=== PATIENT | male | born 1940 | race African-American/Black ===

== ENCOUNTER 2018-07-28 15:55 | Emergency (ER) | payer MEDICARE, SELFPAY ==
[2018-07-28 15:56] VITALS: BP 174/96; PULSE 75; RESP 16; TEMP 36.9; O2SAT 97; BMI 27.6
--- NOTE | 2018-07-28 16:22 | RAD_ITS ---
STUDY: X-RAY - ABDOMEN/PELVIS REASON FOR EXAM: Male, 78 years old. Constipation. TECHNIQUE: Two AP supine views of the abdomen and pelvis. COMPARISON: None. FINDINGS: There is no bowel obstruction. There is air and stool to the level of the rectum. There is mild constipation noted. The visualized osseous structures are within normal limits. RAD/Abdomen Single View IMPRESSION: No bowel obstruction. Mild constipation. Electronically Signed: Bharath Lucero, at 17:20 EDT Tel , Service support ,
[2018-07-28] MEDS: Acetaminophen 500 MG Tablet 1000 MG PO (16:45)
[2018-07-28] MEDS: Acyclovir 800 MG Tablet PO (16:45)
--- NOTE | 2018-07-28 17:45 | ED.DCSUM_ITS ---
- ER Visit Summary Date of Service: 07/28/18 Chief Complaint: Abdominal and back pain History of Present Illness: The patient is a [address] Elkins. He reports that he has left-sided back and abdominal pain that began approximately 2 days ago. Is a dull pain that is constant. Is sharp with movement, pressure, or laying on it. States that 7 to 10 hours and 2-10 currently. States that he has a rash that appeared in the area today. Patient denies any associated nausea, vomiting, diarrhea. Reports that he has had a small bowel movement yesterday and today. His last normal bowel was approximately 4 days ago. Typically he goes daily. Reports that over the past month has had 2 episodes of diarrhea that seems to be a change in the caliber of his stool. He is never had a colonoscopy. Review of systems is otherwise negative. Physical Examination: Vitals: Stable. Afebrile. General: Well-nourished and well-developed. Head: Normocephalic atraumatic. Neck: Supple, no lymphadenopathy. No JVD. Nontender. Cardiovascular: Regular rate and rhythm. No murmurs. Respiratory: No respiratory distress. Clear to auscultation bilaterally. Abdominal: Soft, nontender, nondistended, normal bowel sounds. No guarding, rebound, or peritoneal signs. Back: Nontender. Extremities: Nontender, no edema. Skin: Vesicular rash on the left and a T8 distribution consistent with shingles. Neurologic: Alert and oriented ?3. Cranial nerves II through XII are intact. Normal strength and sensation. Psych: Normal affect. Test Results: Abdominal x-ray shows mild constipation. Emergency Department Course and Treatment: Patient was treated with Tylenol and acyclovir. He is resting comfortably. Treatment Plan: Patient will be discharged with acyclovir and magnesium citrate. Instructed to follow-up with Dr. Elkins in 1 week for another exam. I did discuss the risk of postherpetic neuralgia. I also discussed in the change in his bowel habits that he needs to have a colonoscopy. He was given name of Dr. Ho who is on-call for [facility] general surgery. Return to the emergency department for any worsening symptoms. Disposition: To home in improved and stable condition. Impression: 1. Constipation. 2. Shingles, left T8 distribution. This note was generated with Dragon dictation software. It may contain incorrect words, spelling, and punctuation that were not noted in review of the chart prior to signing ED Disposition - Plan for ED Patient: Instructions: ED Constipation, ED Shingles Prescriptions: Acyclovir 1 tab PO 5X/DAY #35 tablet Magnesium Citrate [Citrate Of Magnesia] 300 ml PO X1 #1 bottle Referrals: Angela Elkins MD [Primary Care Provider] - 1 Week Viridiana Ho MD [STAFF PHYSICIAN] -
[2018-07-28 17:58] VITALS: BP 154/93; PULSE 81; RESP 16; O2SAT 99
== END 2018-07-28 18:00 | disposition home or self-care (01) ==
PROVIDERS: Emergency Provider Emergency Medicine; Family Provider Internal Medicine; PCP Internal Medicine
DX: K59.00 Constipation, unspecified (principal); B02.9 Zoster without complications
CPT/HCPCS: 74018; 99284

== ENCOUNTER 2019-11-16 04:42 | Emergency (ER) | payer MEDICARE, SELFPAY ==
[2019-11-16 04:42] VITALS: BP 188/107; PULSE 77; RESP 18; TEMP 36.3; O2SAT 98; BMI 30.2
--- NOTE | 2019-11-16 05:45 | CT_ITS ---
HISTORY: NECK PAIN X1 WEEK-WORSE W/ MOVEMENT PARASTHESIS RT ARM/LEG, LT MASTOID PAIN, ELEV BP ADDITIONAL HISTORY: None provided COMPARISON: None TECHNIQUE: Noncontrast CT images of the cervical spine. 2D images were reviewed to aid in assessment of the cervical spine. A radiation dose optimization technique was used for this scan. Number of images including paperwork: [id number] FINDINGS: BONES: No acute fracture. No suspicious bone lesion. VERTEBRAL ALIGNMENT: No traumatic subluxation. Preservation of the normal cervical lordosis. DISCS AND JOINTS: Severe discogenic degenerative changes at C4-5, C5-6 and C6-7. Facet arthropathy. SPINAL CANAL AND FORAMINA: No critical canal stenosis. Mild bilateral foraminal stenosis at C4-5, C5-6 and C6-7. SOFT TISSUES: No prevertebral soft tissue swelling. No pathologic-appearing cervical adenopathy. LUNG APICES: Unremarkable. PARANASAL SINUSES: Unremarkable imaged portions if any. CT/Spine Cervical without Contras IMPRESSION: No acute osseous abnormality. Cervical spondylosis. Individualized dose optimization techniques were used for this CT. at 0725 Reported and signed by: Rose Ramos MD Electronically Signed: Rose Ramos MD at 7:25 EDT Tel , Service support ,
--- NOTE | 2019-11-16 05:46 | CT_ITS ---
HISTORY: NECK PAIN X1 WEEK-WORSE W/ MOVEMENT PARASTHESIS RT ARM/LEG, LT MASTOID PAIN, ELEV BP EXAMINATION: CT IACs W/O Contrast Injection TECHNIQUE:Routine noncontrast CT protocol was performed of the internal auditory canals and temporal bones. 2-D reformats were performed by the technologist. A radiation dose optimization technique was used for this scan. IV Contrast dosage and agent: None COMPARISON: CT orbits 01/26/2016 FINDINGS: The right and left mastoids are normally developed, symmetrical, and clear. The external, middle, and inner ear structures show no CT abnormality bilaterally. No mastoid opacification, bony erosion, or inflammatory change. No cholesteatoma or suspicious lesion. No significant TMJ arthritis identified. Bilateral intraparotid lymph nodes, stable compared to prior. Bilateral maxillary sinus circumferential mucosal thickening without significant change. Bilateral sphenoid sinus mucosal thickening, worse on the right, and new compared to prior. Bilateral superficial dermal calcifications, unchanged. No abscess or suspicious fluid collection seen. CT/Orb Sella Post Fossa Ear w/o IMPRESSION: 1. Normal CT bilateral mastoids and temporal bones. 2. Bilateral mild sphenoid sinusitis, a new finding, and bilateral maxillary sinusitis, unchanged. Individualized dose optimization techniques were used for this CT. at 0817 Reported and signed by: Fred Sherwood MD Electronically Signed: Fred Sherwood, at 8:16 EDT Tel , Service support ,
--- NOTE | 2019-11-16 05:51 | ED.DCSUM_ITS ---
- ER Visit Summary Date of Service: 11/16/19 Chief Complaint: Neck pain History of Present Illness: The patient is a 79 M who presents with neck pain that began approximately 1 week ago but is gotten worse over the past 3 days. Patient denies any trauma or injury. Patient states the pain is worse with tur brenda his head as well as flexing his head. Patient describes the pain is constant aching but is sharp with movement. Patient denies any paresthesias or weakness. Patient denies any radiation of the pain. Patient states the pain has been constant for the past week. Patient denies any bowel or bladder changes. Patient denies any saddle anesthesia. Physical Examination: Vital signs are stable. Patient is afebrile. Patient is in no acute distress. Musculoskeletal exam reveals tenderness over the cervical spine and paraspinal muscles. There is also some mild tenderness over the left mastoid process. There is no edema or erythema. There is no warmth noted. Range of motion of the cervical spine was limited in all motions secondary to pain. Heart was regular rate and rhythm. Lungs are clear and equal bilaterally. Abdomen is soft. Bowel sounds are normal. Cranial nerves II through XII are intact. There are no focal motor or sensory deficits noted. Test Results: CBC and basic metabolic profile were obtained and were essentially within normal limits. CT scan of the cervical spine was obtained. CT scan of the orbit, sella, and posterior fossa ear without contrast was obtained. Emergency Department Course and Treatment: Patient was given injection of morphine here. Patient was also given a dose of oral Valium. Disposition: Care of the patient was turned over to the oncoming physician pending CT results. Impression: 1. Acute cervical strain This note was generated with Apieron dictation software. It may contain incorrect words, spelling, and punctuation that were not noted in review of the chart prior to signing ED Disposition - Plan for ED Patient: Disposition: Home or Assisted Living Diagnosis: Cervical paraspinal muscle spasm Instructions: ED SPASM Muscle Prescriptions: cycloBENZAPRine HCl [Flexeril] 10 mg PO QHS PRN PRN #20 tab PRN Reason: Muscle Spasm Prescription Printed Hydrocodone Bitart/Apap 5-325 [[place] 5MG-325MG] 1 tab PO Q6H PRN PRN 3 Days #10 tab PRN Reason: Pain Prescription Printed Referrals: Angela Elkins MD [Primary Care Provider] - 5-7 Days
[2019-11-16] MEDS: Morphine 4 MG/ML Syringe IV (06:10)
[2019-11-16 06:19] LABS: Absolute Lymphocyte Count 2.12 X10^3/uL (0.83-4.51); Absolute Neutrophil Count 5.8 X10^3/uL (2.0-7.7); Basophil# 0.07 X10^3/uL; Basophil% 0.8 % (0-1); Eosinophil# 0.25 X10^3/uL; Eosinophils% 2.7 % (0-5); Hematocrit 40.3 % (40-54); Hemoglobin 13.3 g/dL (13.0-16.5); Lymphocyte # 2.12 X10^3/ul (4.0); Lymphocyte % 22.8 % (19-41); Mean Corpuscular Hgb 28.9 pg (27.0-32.0); Mean Corpuscular Volume 87.6 fL (80-94); Mean Platelet Vol. 9.6 fl (6.2-12.0); Monocyte# 0.99 X10^3/uL; Monocyte% 10.7 % (0-10); NRBC Flagged by Analyzer 0 % (0-5); Neutrophil # 5.82 X10^3/uL (2.7-7.7); Neutrophil % 62.7 % (47-70); Platelet Count 255 K/mm3 (150-450); RBC Distribution Width CV 13.2 % (11.6-14.6); RBC Distribution Width SD 42.1 fl (35.1-43.9); White Blood Count 9.3 K/mm3 (4.4-11.0)
[2019-11-16 06:33] LABS: Anion Gap 5 (5-15); BUN 20 mg/dL (7-18); BUN/Creat Ratio 16.9 RATIO (10-20); Chloride 104 mmol/L (98-107); Creatinine, Serum 1.18 mg/dL (0.70-1.30); EST Glomerular Filtration Rate 63 mL/min (>60); Est Glom Filt Rate - Afr Amer 76 mL/min (>60); Estimated Creatinine Clearance 53.89 ml/min; Glucose 123 mg/dL (74-106); Potassium 3.9 mmol/L (3.5-5.1); Sodium Level 138 mmol/L (136-145)
[2019-11-16 07:09] VITALS: BP 187/98; PULSE 68; RESP 15; O2SAT 99
[2019-11-16] MEDS: diazePAM 5 MG Tablet PO (07:10)
== END 2019-11-16 08:51 | disposition home or self-care (01) ==
PROVIDERS: Emergency Provider Emergency Medicine; PCP Internal Medicine
DX: S16.1XXA Strain of muscle, fascia and tendon at neck level, initial encounter (principal); X58.XXXA Exposure to other specified factors, initial encounter
CPT/HCPCS: 70480; 72125; 80048; 85025; 96374; 99285; A4216

== ENCOUNTER 2021-04-29 21:15 | Emergency (ER) | payer MEDICARE, SELFPAY ==
[2021-04-29 21:16] VITALS: BP 175/87; PULSE 73; RESP 16; TEMP 36.4; O2SAT 98; BMI 26.4
--- NOTE | 2021-04-29 21:44 | RAD_ITS ---
STUDY: X-RAY - LEFT HAND REASON FOR EXAM: Male, 80 years old. LACERATION BETWEEN LEFT THUMB AND FIRST FINGER FROM BROKEN DISH. LIMITED POSITIONING DUE TO BANDAGE BECAUSE OF EXCESSIVE BLEEDING. TECHNIQUE: 3 view(s) of the hand. COMPARISON: None. FINDINGS: Normal radiocarpal articulation. Normal distal radioulnar joint. Normal visualized carpal bones. Normal carpal articulations Normal carpometacarpal articulation of the thumb. Normal second through fifth carpometacarpal joints. Normal metacarpi. Normal metacarpophalangeal joint of the thumb. Normal interphalangeal joint of the thumb. Normal proximal and distal phalanges of the thumb. Degenerative changes of the second and third MCP joints with lateral subluxation and periarticular erosions. Normal proximal and distal interphalangeal joints of the second through fifth fingers. Normal phalanges of the second through fifth fingers. Soft tissue swelling between the first and second digits with subcutaneous air. No radiopaque foreign body. RAD/Hand Min 3 Views IMPRESSION: 1. Soft tissue injury/laceration between the first and second digits. No radiopaque foreign body demonstrated. 2. Degenerative changes of the second and third MCP joints with erosive features suggesting possibility of rheumatoid arthritis. Electronically Signed: Kobe Escoto MD (Brooks) at 22:22 EST Reading Location ID and State: [facility] / [place] , Service support ,
[2021-04-29] MEDS: oxyCODONE 5 MG Tablet PO (23:14)
--- NOTE | 2021-04-29 23:17 | EX.ED.GENINJ ---
HPI History of Present Illness Chief Complaint: Laceration Narrative Narrative: Patient presents with a left hand laceration after falling into a broken glass dish. He has a thenar eminence and hyperthenar eminence laceration, he also has decreased sensation over the radial side of his thumb. No other injury. No neck pain. He is not anticoagulated. [facility] Medical History Hypertension Home Medications amlodipine 5 mg PO DAILY 11/23/15 [History Last Taken Unknown] cholecalciferol (vitamin D3) [Vitamin D3] 1,000 unit PO DAILY 10/18/16 [History Last Taken Unknown] magnesium citrate 300 ml PO X1 #1 bottle 07/28/18 [Rx Last Taken Unknown] mv,Ca,ifd-vebw-QW-lycopene [Centrum Men's Tablet] 1 ea PO DAILY 07/28/18 [History Last Taken Unknown] amoxicillin-pot clavulanate 875 mg PO Q12H #14 tab 11/16/19 [Rx Last Taken Unknown] cyclobenzaprine 10 mg PO QHS PRN PRN #20 tab 11/16/19 [Rx Last Taken Unknown] oxycodone-acetaminophen [Percocet] 1 tab PO Q8H PRN 3 Days #10 tab 04/29/21 [Rx Last Taken Unknown] Allergy/AdvReac Type Severity Reaction Status Date / Time No Known Allergies Allergy Verified 04/29/21 21:18 Social History Smoking Status: Never smoker ROS ROS ED ROS Narrative Past medical history: none Medications: Reviewed Social history: Noncontributory Review of systems: Musculoskeletal: Laceration and hand injury as in HPI Skin: Laceration Neurological: No weakness or paresthesias Hematologic: No easy bleeding or easy bruising EXAM Physical Exam Narrative Exam Narrative: Physical exam General: Patient does not appear in significant distress . Head: Normocephalic, Atraumatic Neck: No C-spine tenderness Cardiovascular: Normal distal pulses Back: Nontender, Normal Inspection. Extremities: Left hand shows a 2.5 cm laceration over the thenar eminence, there is an arteriolar bleed present, there is also a 1 cm flap laceration over the hypothenar eminence, there are other abrasions throughout the hand. Patient has normal strength of the thumb with normal tendon function however there is decreased sensation over the radial side of the thumb including loss of two-point discrimination in that region. Skin: As above Neurological: Normal strength and sensory deficit as above Const Vital Signs: 04/29/21 21:16 Temperature 97.6 F L Temperature Source Temporal Pulse Rate 73 Respiratory Rate 16 Blood Pressure 175/87 H Blood Pressure Mean 116 Pulse Ox 98 Oxygen Delivery Method Room Air PROC Procedures Lacerations Hand laceration: Length: 1.38 in Depth: Skin Shape: Flap Prep: Sterile Conditions and Shure-Clens Laceration repair: Debrideded, Irrigated and Lidocaine Number of Sutures/Jhon: 7 Suture Information: Ethilon and 4-0 Comment: I used a blood pressure cuff as a tourniquet, the arterial bleed stopped after approximation of the skin via tamponade. Patient was reexamined he does have pain in his thenar eminence but still has full range of motion. MDM MDM MDM Narrative Medical decision making narrative: Patient was sutured, there is no evidence of foreign body on my exploration. Hemostasis is achieved. Radiography Diagnostic Testing: Clinical Impression(s) from Imaging Studies Hand X-Ray 04/29/21 21:44 IMPRESSION: 1. Soft tissue injury/laceration between the first and second digits. No radiopaque foreign body demonstrated. 2. Degenerative changes of the second and third MCP joints with erosive features suggesting possibility of rheumatoid arthritis. Electronically Signed: Kobe Escoto MD (Brooks) at 22:22 EST Reading Location ID and State: [facility] / [place] , Service support , X-ray interpreted by me and radiologist does not show any foreign body. No fractures. Discharge Plan Triage Chief Complaint: Laceration ED Provider: Fritz Muñoz Dx/Rx/DC Orders Clinical Impression: Hand laceration Instructions: ED Laceration: All Closures, ED Laceration, Hand: All Closures Prescriptions: New oxycodone-acetaminophen [Percocet] 5-325 mg tablet 1 tab PO Q8H PRN (Reason: pain) 3 Days Qty: 10 RF: 0 No Action amlodipine 5 MG tablet 5 mg PO DAILY RF: 0 cholecalciferol (vitamin D3) [Vitamin D3] 1,000 UNIT capsule 1,000 unit PO DAILY RF: 0 mv,Ca,hhz-vsnf-WT-lycopene [Centrum Men] 1 EACH tablet 1 ea PO DAILY RF: 0 magnesium citrate 300 ML solution 300 ml PO X1 Qty: 1 RF: 0 cyclobenzaprine 10 MG tablet 10 mg PO QHS PRN PRN (Reason: Muscle Spasm) Qty: 20 RF: 0 amoxicillin-pot clavulanate 875 MG tablet 875 mg PO Q12H Qty: 14 RF: 0 Primary Care Provider: Angela Elkins Referrals: Pastor Seaman MD [STAFF PHYSICIAN] - 2 Days for wound check (sutures to be removed in 10 days) Angela Elkins MD [Primary Care Provider] - Disposition Disposition: Home, Self Care
[2021-04-29] MEDS: Cefazolin 1 GM/5 ML Vial IM (23:33)
== END 2021-04-30 00:13 | disposition home or self-care (01) ==
PROVIDERS: Emergency Provider Emergency Medicine; PCP Internal Medicine; Visit Provider Emergency Medicine
DX: S61.412A Laceration without foreign body of left hand, initial encounter (principal); W19.XXXA Unspecified fall, initial encounter; W25.XXXA Contact with sharp glass, initial encounter
CPT/HCPCS: 12001; 73130; 96372; 99283

== ENCOUNTER 2022-01-21 23:47 | Emergency (ER) | payer MEDICARE, SELFPAY ==
[2022-01-21 23:48] VITALS: BP 167/103; PULSE 70; RESP 15; TEMP 37; O2SAT 97; BMI 26.1
[2022-01-22] MEDS: Tetracaine 0.5% Ophthalmic Bottle 1 DRP RIGHT EYE (00:05)
[2022-01-22] MEDS: Fluorescein 1 MG STRIP 1 STRIP RIGHT EYE (00:06)
--- NOTE | 2022-01-22 00:11 | EDS_ITS ---
HPI History of Present Illness Chief Complaint: Eye Problem Informant: patient Narrative Narrative: Patient states he has a right eye irritation mostly on the lateral aspect. He states he was holding a piece of metal this morning about 8 AM that someone else was cutting. But he had glasses on and was turned away from the area. He never felt any problems at all. Later in the morning he was holding parts why somebody did TIG welding on them. He states it was a very bright arc. He started to have discomfort in the right eye this evening. He states his vision is normal to him. But the eye feels like it is burned or something is in it. [facility] Medical History Hypertension Home Medications amlodipine 5 mg tablet 5 mg PO DAILY 11/23/15 [History Last Taken Unknown] cholecalciferol (vitamin D3) 25 mcg (1,000 unit) capsule (Vitamin D3) 1,000 unit PO DAILY 10/18/16 [History Last Taken Unknown] magnesium citrate 300 ml PO X1 ##1 07/28/18 [Rx Last Taken Unknown] multivit,Ca,min-iron 8 mg-folic acid 200 mcg-lycopene 600 mcg tablet (Centrum Men) 1 ea PO DAILY 07/28/18 [History Last Taken Unknown] amoxicillin 875 mg-potassium clavulanate 125 mg tablet 875 mg PO Q12H #14 tabs 11/16/19 [Rx Last Taken Unknown] cyclobenzaprine 10 mg tablet 10 mg PO QHS PRN PRN Muscle Spasm #20 tabs 11/16/19 [Rx Last Taken Unknown] oxycodone-acetaminophen 5 mg-325 mg tablet (Percocet) 1 tab PO Q8H PRN pain 3 days #10 tabs 04/29/21 [Rx Last Taken Unknown] Allergy/AdvReac Type Severity Reaction Status Date / Time No Known Allergies Allergy Verified 04/29/21 21:18 Social History Smoking Status: Never smoker ROS ROS ED Constitutional Constitutional ED: Denies fever(s) Eyes Eyes: Reports other Details: See history of present illness. ; Denies blurry vision, change in vision or diplopia ENT ENT ED: Denies rhinorrhea or sore throat Cardiovascular Cardiovascular: Denies chest pain Respiratory/Chest Respiratory/Chest: Denies cough Gastrointestinal Gastrointestinal: Denies nausea or vomiting Musculoskeletal Musculoskeletal: Denies neck pain Integumentary Denies Abrasions or rash Neurologic Neurologic: Denies headache(s) Hematologic/Lymphatic Hematologic/Lymphatic: Denies easy bleeding or easy bruising Allergic/Immunologic Allergic/Immunologic ED: Denies urticaria EXAM Physical Exam Const Vital Signs: 01/21/22 23:48 Temperature 98.6 F Temperature Source Oral Pulse Rate 70 Respiratory Rate 15 Blood Pressure 167/103 H Blood Pressure Mean 124 Pulse Ox 97 Oxygen Delivery Method Room Air Positive well nourished and well developed General Appearance ED: well developed and NAD HEENT HEENT Narrative: No trauma. No swelling. No erythema. No rash or vesicles. Zuleta sign is negative. No sinus tenderness. atraumatic Eyes Eyes Narrative: Mild conjunctival injection on the right. Mild tearing. Direct ophthalmoscopic exam shows minimal photophobia. Pupillary responses normal. No foreign body is noted. Slit-lamp exam was done. No foreign body is seen on the cornea or under lower or upper lids and these were everted. Fluorescein dye was done that showed no foreign body. No linear streaking consistent with a foreign body under the lid. However, on the outer portion of the eye in the mid section there was some superficial punctate keratitis that is consistent with Welders flash. When tetracaine was placed in the eyes all of his symptoms went away. Neck no lymphadenopathy Resp normal respiratory effort GI non-tender Extremity normal to inspection Skin no wounds Lesions: no lesions Rashes: no rashes MDM MDM MDM Narrative Medical decision making narrative: Patient's history and exam are consistent with Welders flash exposure. He states the welding that was going on was to his right side. This makes sense on where it affected his eye. We discussed that this will be resolved within a day. If it is going on areas of visual change she needs to be rechecked. I did tell him that he could use tetracaine drops but only 1 drop in the right eye once an hour at most. And when he uses these drops he cannot touch the eye or wipe anything away as he could cause more damage than benefit. 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 If no bowel movement in 12 hours drink the other half. cyclobenzaprine 10 MG tablet 10 mg PO QHS PRN PRN (Reason: Muscle Spasm) Qty: 20 0RF amoxicillin-pot clavulanate 875 MG tablet 875 mg PO Q12H Qty: 14 0RF oxycodone-acetaminophen [Percocet] 5-325 mg tablet 1 tab PO Q8H PRN (Reason: pain) 3 Days Qty: 10 0RF Primary Care Provider: Angela Elkins Referrals: Shay Greer MD [Med Staff - Active Staff] - 1-2 Days if not improving Angela Elkins MD [Primary Care Provider] - Disposition Disposition: Home, Self Care
[2022-01-22 00:14] VITALS: RESP 18
== END 2022-01-22 00:24 | disposition home or self-care (01) ==
LOC: ED 01-22 00:14
PROVIDERS: Emergency Provider Emergency Medicine; PCP Internal Medicine; Visit Provider Emergency Medicine
DX: H16.131 Photokeratitis, right eye (principal)
CPT/HCPCS: 99282